=== PATIENT | male | born 1990 | race Two or more races ===

== ENCOUNTER 2024-03-28 21:55 | Emergency (ER) | payer MEDICAID, OTHER ==
[~2024-03-28] VITALS: Ht 172.7 cm; Wt 79.7 kg
[2024-03-29 00:54] VITALS: BP 109/53; PULSE 60; RESP 16; TEMP 98; O2SAT 93
[2024-03-29] MEDS: TETRACAINE HCL 0.5% OPTH(EYE) SOLN 4ML RIGHTEYE ONE (01:02)
[2024-03-29] MEDS: FLUORESCEIN SOD OPTH TEST STRIP RIGHTEYE ONE (01:02)
[2024-03-29] MEDS ORDERED: MOXI0.5S3 OP (01:47)
--- NOTE | 2024-03-29 01:47 | ED.PDOC ---
Eye-HPI HPI Comments This is a 33-year-old male patient presents to the ED with right eye drainage and pain. Patient states he was doing yd work earlier today felt like he got some in his eye and flushed it out for several minutes continues with right eye irritation and redness and tearing. Denies any vision changes. Denies fever or chills. Denies known injury. Chief Complaint: Eye Problem Time Seen by MD: 22:57 Primary Care Provider: NONE Reviewed Notes: Nurses Notes, Medications, Allergies Home Meds Active Scripts Moxifloxacin Hydrochloride (Moxifloxacin HCl) 0.5 % Shahrzad, 1 DROP OP TID for 7 Days, #2 ML Instill 1 drop 3 times daily x7 days into right eye Prov:HANNAHSAWYERK RACIEL 03/29/24 Mode of Arrival: Ambulatory Past Medical History PAST MEDICAL HISTORY: Denies Surgical History: Denies all surgeries Family History Family History: Reviewed,noncontributory to illness, No family hx of Cancer, No family hx of DM, No family hx of Heart liza, No family hx of HTN, No family hx ofKidney liza, No family hx of Liver liza, No family hx of Lung liza, No family hx of Stroke Social History Smoker: Non-Smoker Alcohol: Denies ETOH Use Drugs: Denies Drug Use Constitutional: denies: chills, diaphoresis, fatigue, fever, malaise, sweats, weakness, others EENTM: reports: eye pain (Right), eye redness (Right); denies: blurred vision, double vision, ear bleeding, ear discharge, ear drainage, ear pain, ear ringing, hearing loss, mouth pain, mouth swelling, nasal discharge, nose bleeding, nose congestion, nose pain, photophobia, tearing, throat pain, throat swelling, voice changes, others Respiratory: denies: cough, hemoptysis, orthopnea, SOB at rest, shortness of breath, SOB with excertion, stridor, wheezing, others Cardiovascular: denies: chest pain, dizzy spells, diaphoresis, Dyspnea on exertion, edema, irregular heart beat, left arm pain, lightheadedness, palpitations, PND, syncope, others Gastrointestinal: denies: abdomen distended, abdominal pain, blood streaked bowels, constipated, diarrhea, dysphagia, difficulty swallowing, hematemesis, melena, nausea, poor appetite, poor fluid intake, rectal bleeding, rectal pain, vomiting, others Genitourinary: denies: burning, dysuria, flank pain, frequency, hematuria, incontinence, penile discharge, penile sore, pain, testicle pain, testicle swe lling, urgency, others Neurological: denies: dizziness, fainting, headache, left sided numbness, left sided weakness, numbness, paresthesia, pre-existing deficit, right sided numbness, right sided weakness, seizure, speech problems, tingling, tremors, weakness, others Musculoskeletal: denies: back pain, gout, joint pain, joint swelling, muscle pain, muscle stiffness, neck pain, others Integumetry: denies: bruises, change in color, change in hair/nails, dryness, laceration, lesions, lumps, rash, wounds, others Allergic/Immunocompromised: denies: Difficulty Healing, Frequent Infections, Hives, Itching, others Hematologic/Lymphatic: denies: anemia, blood clots, easy bleeding, easy bruising, swollen glands, others Endocrine: denies: excessive hunger, excessive sweating, excessive thirst, excessive urination, flushing, intolerance to cold, intolerance to heat, unexplained weight gain, unexplained weight loss, others Psychiatric: denies: anxiety, bipolar disorder, depression, hopeless, panic disorder, schizophrenia, sleepless, suicidal, others Physical Exam General Appearance: No Apparent Distress, Normal HEENT: Normal ENT Inspection, Pharynx Normal, Other (Right eye hyperemia conjunctiva clear drainage noted) Neck: Full Range of Motion, Non-Tender, Normal, Normal Inspection Respiratory: Lungs Clear, No Respiratory Distress, Normal Breath Sounds Cardiovascular: No Murmur, Normal Peripheral Pulses, Regular Rate/Rhythm Breast Exam: Deferred Gastrointestinal: Non Tender, Soft Genitalia: Deferred Pelvic: Deferred Rectal: Deferred Extremities: Normal inspection, Normal range of motion Musculoskeletal : Apperance: Normal Neurologic: Alert, [employer] II-XII nml as Tested, No Motor Deficits, Normal Affect, Normal Mood, No Sensory Deficits Cerebellar Function: Normal Reflexes: Normal Skin: Dry, Normal Color, Warm Lymphatic: No Adenopathy Was a procedure done? Was a procedure done?: Yes Sedation Sedation?: No Informed consent obtained: Yes Other Procedure Procedure Wood's lamp examination Indication Right eye possible foreign body Anesthetic Tetracaine 0.5% 1 drop Prep Fluorescein and tetracaine Success Patient tolerated well. No noted cornea abrasion, ulcer, laceration, or foreign body. Abrasion conjunctiva Informed consent obtained: Yes Risks, benefits, and alternati: Yes EENT DIFF Eye: Corneal Ulceration, Foreign Body-Conjunctiva, Foreign Body-Corneal, Foreign Body-Intraocular X-Ray, Labs, Meds, VS Vital Signs Date Time Temp Pulse Resp B/P (MAP) Pulse Ox O2 Delivery O2 Flow Rate FiO2 03/29/24 00:54 98.0 60 16 109/53 (71) 93 98.0 03/29/24 00:54 60 16 93 Room Air 03/28/24 22:09 98.1 54 16 119/79 (92) 98 Current Medications Medications (Trade) Dose Ordered Sig/Stephanie Route Start Time Stop Time Status Last Admin Tetracaine HCl (Tetracaine 0.5% Opth Soln) 1 drop ONCE ONCE RIGHTEYE 03/29/24 01:00 03/29/24 01:01 DC 03/29/24 01:02 Fluorescein Sodium (Ful-Praveena) 1 mg ONCE ONCE RIGHTEYE 03/29/24 01:00 03/29/24 01:01 DC 03/29/24 01:02 X-Ray, Labs, Meds, VS Comment See procedure note. We will start patient on trial of moxifloxacin drops advised to follow up with Ophthalmology 2-3 days if no improvement. ER return precautions given patient indicated understanding agrees with discharge plan of care. Time of 1ST Reevaluation: 01:45 Reevaluation 1ST: Improved Patient Education/Counseling: Diagnosis, Treatment, Prognosis, Need For Follow Up Family Education/Counseling: No Family Present Departure 1 Departure Time of Disposition: 01:45 Impression: Primary Impression: Abrasion of conjunctiva, right Qualified Codes: S05.01XA - Injury of conjunctiva and corneal abrasion without foreign body, right eye, initial encounter Disposition: HOME / SELF CARE / HOMELESS Condition: Stable e-Prescriptions Moxifloxacin Hydrochloride (Moxifloxacin HCl) 0.5 % Shahrzad 1 DROP OP TID for 7 Days, #2 ML Instill 1 drop 3 times daily x7 days into right eye Prov: LY YOUNG 03/29/24 Discharged With: Self Critical Care Note Critical Care Time?: No Stability Stability form required: No LY YOUNG Mar 29, 2024 01:47
== END 2024-03-29 01:58 | disposition home or self-care (01) ==
LOC: ER 21:55
DX: S05.01XA Injury of conjunctiva and corneal abrasion without foreign body, right eye, initial encounter (principal); X58.XXXA Exposure to other specified factors, initial encounter; Y93.89 Activity, other specified; Y92.89 Other specified places as the place of occurrence of the external cause; Y99.8 Other external cause status